=== PATIENT | male | born 1950 | race African-American/Black ===

== ENCOUNTER 2017-01-11 15:56 | Inpatient (IN) | payer OTHER ==
[~2017-01-11] VITALS: Ht 170.2 cm; Wt 64.9 kg
[2017-01-11] MEDS ORDERED: SODIUM CHLORIDE 0.9% 1,000 ML IV ONE (16:11)
[2017-01-11 16:38] LABS: BG BASE EXCESS 3.9 mmol/L (-2.0-2.0); BG CARBOXYHEMOGLOBIN 0.1 % (0.5-1.5); BG DEOXYHEMOGLOBIN 4.3 % (0.0-5.0); BG FRACTION INSPIRED OXYGEN 21; BG HCO3 ACT 27.1 mmol/L (22.0-26.0); BG METHEMOGLOBIN 0.3 % (0.0-1.5); BG OXYGEN SATURATION 95.7 % (92.0-98.5); BG OXYHEMOGLOBIN 95.3 % (94.0-97.0); BG PH 7.506 (7.350-7.450); BG PO2 80.2 mmHg (75.0-100.0); BG SAMPLE SITE RIGHT BRACHIAL; BG TOTAL HEMOGLOBIN 9.3 g/dL (12.0-18.0); BG VENT MODE ROOM AIR
[2017-01-11 17:35] LABS: BASOPHILS % 0.1 % (0.0-2.0); EOSINOPHILS % 0.2 % (0.0-5.0); HEMATOCRIT. 28.7 % (42.0-52.0); HEMOGLOBIN. 9.3 g/dL (14.0-18.0); LYMPHOCYTES % 8.6 % (20.0-50.0); MEAN CORPUSCULAR HEMOGLOBIN 29.9 pg (28.0-32.0); MEAN CORPUSCULAR VOLUME 92.3 fL (80.0-94.0); MEAN PLATELET VOLUME 9.1 fl (7.4-10.4); NEUTROPHILS % 82.1 % (40.0-76.0); PLATELET 370 x1000/uL (130-400); RED BLOOD CELL COUNT 3.11 mill/uL (4.7-6.1); RED CELL DISTRIBUTION WIDTH 17.2 % (11.6-14.6)
[2017-01-11 17:37] LABS: INR 1.5
[2017-01-11 17:42] LABS: AMMONIA 33 uMol/L (<32); CARBON DIOXIDE 26 mEq/L (21-32); CHLORIDE 116 mEq/L (98-107)
[2017-01-11 17:43] LABS: ETHANOL BLOOD < 10 mg/dL
[2017-01-11 17:50] LABS: TROPONIN I < 0.02 ng/mL (0.00-0.04)
[2017-01-11] MEDS ORDERED: DEXT 5%/0.45% NACL 1000ML 1,000 ML IV ONE (18:00)
[2017-01-11] MEDS ORDERED: KCL 10MEQ/50ML PREMIX 50 ML IV ONE (18:00)
[2017-01-11] MEDS ORDERED: MAGNESIUM 1 G PREMIX 100 ML IV ONE (18:00)
[2017-01-11 18:01] LABS: CREATINE KINASE 1496 IU/L (39-308)
[2017-01-11] MEDS ORDERED: PIPERACILLIN/TAZOBACTAM 3.375GM/50ML PREMIX IV ONE (18:15)
[2017-01-11] MEDS ORDERED: PIPERACILLIN/TAZ 3.375G PREMIX 50 ML IV NR (18:18)
[2017-01-11 20:00] VITALS: BP 98/68
[2017-01-11 20:04] VITALS: BP 101/58
[2017-01-11] MEDS ORDERED: FOLI-43 PO (21:35)
[2017-01-11] MEDS ORDERED: RISP2 PO (21:35)
[2017-01-11] MEDS ORDERED: DIVA500T PO (21:35)
[2017-01-11] MEDS ORDERED: MESA1.2T2 PO (21:35)
[2017-01-11] MEDS ORDERED: AMLO5TAB4 PO (21:35)
[2017-01-11] MEDS ORDERED: ACETAMINOPHEN 325MG TABLET PO PRN (22:00)
[2017-01-11] MEDS ORDERED: POTASSIUM CHLORIDE 20MEQ/PACKET PO NR (22:00)
[2017-01-11] MEDS ORDERED: MORPHINE SULFATE 4 MG/ML CPJ (NOT FOR IM USE) IV PRN (22:00)
[2017-01-11] MEDS ORDERED: CLONIDINE 0.1MG TABLET PO PRN (22:00)
[2017-01-11] MEDS: DEXTROSE 5% WATER 1,000 ML IV SCH (23:24)
[2017-01-12] VITALS: BP 98/60
[2017-01-12 04:00] VITALS: BP 92/59
[2017-01-12 05:45] LABS: HEMATOCRIT 27.5 % (42.0-52.0); HEMOGLOBIN 8.9 g/dL (14.0-18.0); MEAN CORPUSCULAR HEMOGLOBIN 30.3 pg (28.0-32.0); MEAN CORPUSCULAR VOLUME 93.2 fL (80.0-94.0); PLATELET 317 x1000/uL (130-400); RED BLOOD CELL COUNT 2.95 mill/uL (4.7-6.1); RED CELL DISTRIBUTION WIDTH 17.4 % (11.6-14.6)
[2017-01-12 06:35] LABS: CARBON DIOXIDE 28 mEq/L (21-32); CHLORIDE 116 mEq/L (98-107)
[2017-01-12 08:00] VITALS: BP 108/65
[2017-01-12] MEDS: PANTOPRAZOLE SODIUM 40 MG/VIAL IV SCH (09:45)
[2017-01-12] MEDS: ENOXAPARIN 40MG/0.4ML SYR SUBCUT SCH (09:46)
[2017-01-12] MEDS ORDERED: POTASSIUM CHLORIDE INJ 40 MEQ in DEXT 5% WATER 250 ML IV SCH (11:00)
[2017-01-12] MEDS: POTASSIUM CHLORIDE 20MEQ TABLET SR PO SCH (11:14)
[2017-01-12] MEDS: DEXTROSE 5% WATER 1,000 ML IV SCH (11:20)
[2017-01-12 12:00] VITALS: BP 96/61
[2017-01-12 12:18] LABS: AMMONIA 41 uMol/L (<32)
[2017-01-12 16:00] VITALS: BP 96/64
[2017-01-12] MEDS ORDERED: POTASSIUM CHLORIDE INJ 40 MEQ in DEXT 5% WATER 250 ML IV NR ×3 (16:00)
[2017-01-12 20:00] VITALS: BP 113/50
[2017-01-13] VITALS: BP_SYST 102; BP_SYST 103; BP_DIAS 59
[2017-01-13] MEDS: DEXTROSE 5% WATER 1,000 ML IV SCH ×2 (03:14→15:45)
[2017-01-13 05:32] LABS: BASOPHILS % 0.3 % (0.0-2.0); EOSINOPHILS % 0.7 % (0.0-5.0); HEMATOCRIT. 26.7 % (42.0-52.0); HEMOGLOBIN. 8.6 g/dL (14.0-18.0); LYMPHOCYTES % 15.6 % (20.0-50.0); MEAN CORPUSCULAR VOLUME 92.6 fL (80.0-94.0); MEAN PLATELET VOLUME 8.9 fl (7.4-10.4); NEUTROPHILS % 74.4 % (40.0-76.0); PLATELET 289 x1000/uL (130-400); RED BLOOD CELL COUNT 2.88 mill/uL (4.7-6.1); RED CELL DISTRIBUTION WIDTH 16.8 % (11.6-14.6)
[2017-01-13 07:08] LABS: CHLORIDE 117 mEq/L (98-107)
[2017-01-13 07:18] LABS: CARBON DIOXIDE 26 mEq/L (21-32)
[2017-01-13 08:00] VITALS: BP 99/59
[2017-01-13] MEDS: ENOXAPARIN 40MG/0.4ML SYR SUBCUT SCH ×2 (08:55→09:00)
[2017-01-13] MEDS: PANTOPRAZOLE SODIUM 40 MG/VIAL IV SCH (08:55)
[2017-01-13] MEDS: POTASSIUM CHLORIDE 20MEQ TABLET SR PO SCH (08:56)
[2017-01-13 12:00] VITALS: BP 113/68
[2017-01-13 17:17] VITALS: BP 99/58
[2017-01-13 20:00] VITALS: BP 100/55
[2017-01-13 20:23] VITALS: BP 100/55
[2017-01-14] MEDS ORDERED: FAMOTIDINE 20MG TABLET PO SCH (09:00)
== END 2017-01-13 21:04 | disposition short-term general hospital (02) | DRG 871 ==
LOC: ER 16:27 → EDBEDREQ 18:52 → EDBEDREQTM 18:52 → ENRESERV 19:00 → 7WST 20:05
PROVIDERS: ADMIT Hospitalist; ATTEND Hospitalist
DX: A41.9 Sepsis, unspecified organism (principal); E43 Unspecified severe protein-calorie malnutrition; G93.40 Encephalopathy, unspecified; E87.0 Hyperosmolality and hypernatremia; Z99.3 Dependence on wheelchair; E87.6 Hypokalemia; I10 Essential (primary) hypertension; D64.9 Anemia, unspecified; E78.00 Pure hypercholesterolemia, unspecified; M19.90 Unspecified osteoarthritis, unspecified site; Z68.22 Body mass index [BMI] 22.0-22.9, adult; Z79.899 Other long term (current) drug therapy
CPT/HCPCS: 36415; 36600; 70450; 71010; 80053; 82140; 82375; 82550; 82805; 83605; 83735; 83880; 84484; 85025; 85027; 85610; 86850; 86900; 92610; 93005; 96361; 96365; 96367; 99285; C9113; G0482; J1650; J2543; J3475; J3480; J3490; J7030; J7060; J7070; A4315